=== PATIENT | female | born 1995 | race Caucasian/White ===

== ENCOUNTER 2016-09-06 15:30 | Inpatient (IN) ==
[2016-09-06] MEDS ORDERED: DINOPROSTONE VAG GEL 10 MG SYRINGE VAG ONE (15:54)
[2016-09-06] MEDS ORDERED: ONDANSETRON 4 MG/2 ML VIAL IV PRN (16:20)
[2016-09-06 16:52] LABS: Basophils % 0.2 % (0.0-0.8); Eosinophils # 0.1 10*3/uL (0.0-0.87); Eosinophils % 0.5 % (0.00-10.9); Hematocrit 24.4 VOL% (35.7-47.0); Immature Granulocytes % 0.9 %; Lymphocytes # 1.5 10*3/uL (1.4-4.0); Lymphocytes % 13.3 % (21.3-54.2); Mean Corpuscular HGB Conc 28.7 GM/DL (32-36); Mean Corpuscular Hemoglobin 20 PG (27-34); Mean Corpuscular Volume 70.3 FL (87-102); Mean Platelet Volume 10.3 FL (9.6-12.0); Monocytes # 0.9 10*3/uL (0.11-0.8); Monocytes % 8.4 % (1.7-12.7); Neutrophils # 8.4 10*3/uL (1.4-7.4); Neutrophils % 76.7 % (38.7-73.9); Platelet Count 262 T/CUMM (130-400); Red Blood Count 3.47 MC/CUMM (3.8-5.5); Red Cell Distribution Width 20.9 % (9.3-17.3)
[2016-09-06 17:24] LABS: Albumin 2.8 G/DL (3.4-5.0); Bilirubin,Total 0.4 MG/DL (0.2-1.0); Calcium 8.3 MG/DL (8.5-10.1); Osmolality,Calculated 271.7 MOS/KG (273-304); Potassium 4.2 MMOL/L (3.5-5.1); Total Protein 6.2 G/DL (6.4-8.3)
--- NOTE | 2016-09-06 18:03 | OB/GYN History & Physical ---
History of Present Illness Chief complaint: In for elective induction of labor History of present illness: Ms. Bellamy is a 21 year old female who is a 3 para 2 living 2 who presented to the labor department for elective induction of labor due to term . The risk and benefits of been thoroughly discussed with this patient and significant other, plan of care has been discussed with Dr. Garcia and all parties are in agreement with plan. The patient began her care at the [facility] and she received routine care and her course was uneventful with the exception of severe anemia. The patient was treated with iron therapy however her counts did not increase significantly. Have discussed the possibility of blood transfusion with this patient post delivery of this . She has had 2 previous vaginal deliveries and her largest weighing 7 pounds and 13 ounces and she reported no complications with either . labs: She is O+, rubella is immune, RPR is nonreactive, hepatitis B is negative, HIV is negative , and GBS cultures negative, review of systems is negative with exception of above. Home Medications Medication Instructions Recorded Confirmed Type No122/Iron/Folic Acid 1 caplet PO DAILY 10/31/14 09/06/16 History [ Multi Tablet] Allergies Allergy/AdvReac Type Severity Reaction Status Date / Time No Known Allergies Allergy Verified 10/31/14 02:36 12 point system: reviewed and no additional remarkable complaints except as stated Medical,Surgical,& Family Hx - Medical History Hematology: History of: Anemia Reproductive: No history of: Ectopic , Complication - Surgical History Surgical History: noncontributory Reproductive Surgeries: Patient denies;: Section - Family History Family History: Reports;: Family Diabetes (PGF AND MGM), Family Heart Disease ( MGM), Family Hematology (MGM Hemophilia) Denies;: Family Anesthesia Reaction, Family Cancer, Family Hypertension, Family Psychiatric Problems, Family Stroke - Social History Smoking Status: Never smoker Frequency of Alcohol Use: None Type of Drug Use: None Marital Status: Lives With:: Spouse Functional capacity: independent ambulation 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 General appearance: no acute distress - Antepartum / Post Antepartum Exam Cervix - Dilatation: 3 cm Effacement: 60% Station: -2 Rupture: Intact Presentation: Vertex Heart Rate: 140 Breast: bilateral: normal Abdomen obstetrics: Present: bowel sounds normal Vulva: bilateral: normal Vagina: Present: normal moisture Uterus exam: Present: enlarged Anus/Rectum: Present: normal perianal skin - Respiratory Respiratory exam: Present: clear to auscultation bilaterally - Cardiovascular Cardiovascular exam: Present: regular rate and rhythm - GI/Abdominal GI/Abdominal exam: Present: normal bowel sounds, soft - Extremities Exam Extremities exam: Present: normal inspection - Neurological Exam Neurological exam: Present: alert, oriented X3 - Psychiatric Psychiatric exam: Present: normal affect, normal mood - Skin Skin exam: Present: normal color, warm Assessment and Plan (1) Term Status: Acute Assessment and plan: Admit IV fluids IV Pitocin per protocol Artificial rupture membranes when appropriate Internal monitors if indicated Epidural anesthesia if desired Anticipate Current Visit: Yes Results - Labs CBC & BMP: 09/06/16 16:46 09/06/16 16:46 Quality Measures - VTE Contraindication to Pharmacological VTE Prophylaxis: High Risk of Bleeding
[2016-09-06] MEDS: LACTATED RINGERS 1,000 ML IV SCH (19:08)
[2016-09-06] MEDS ORDERED: FAMOTIDINE 20 MG/2 ML VIAL IV ONE (19:21)
[2016-09-06] MEDS ORDERED: CITRIC ACID/SODIUM CITRATE 30 ML UDCUP PO ONE (19:21)
[2016-09-06] MEDS ORDERED: ePHEDrine 50 MG/ML AMP IV PRN (19:21)
[2016-09-06] MEDS ORDERED: fentaNYL 2 MCG/ROPIV 0.2% EPID 150 ML EPIDURAL SCH (19:22)
[2016-09-06 19:47] LABS: Poikilocytosis 1+; Tear Drop Cells Few
[2016-09-06 19:48] LABS: Burr Cells Few; Hypochromasia 1+; Microcytosis 1+; Ovalocytes Few; Platelet Estimate Normal
[2016-09-06] MEDS ORDERED: OXYTOCIN/LR 20 UNIT/1,000 ML BAG IV ONE (23:49)
[2016-09-07] MEDS ORDERED: CITRIC ACID/SODIUM CITRATE 30 ML UDCUP ONE ×2 (02:23→07:51)
[2016-09-07] MEDS ORDERED: OXYTOCIN/LR 20 UNIT/1,000 ML BAG IV SCH (03:00)
[2016-09-07] MEDS ORDERED: FAMOTIDINE 20 MG/2 ML VIAL IV ONE (08:00)
[2016-09-07] MEDS: LACTATED RINGERS 1,000 ML IV SCH ×2 (08:20→08:21)
--- NOTE | 2016-09-07 08:52 | Event Note ---
832: Artificial rupture membranes was performed with clear fluid noted. The patient is comfortable with her epidural. Vaginal exam is 5 cm dilated 80% effaced and vertex was presented at a -2 station. The patient is comfortable and is kwan approximately every 2-3 minutes with moderate palpation.
[2016-09-07 11:34] LABS: Apearance,Urine CLEAR (Clear); Bacteria,Urine Occasional /HPF (Few); Bilirubin,Urine Negative (Negative); Blood, Urine Negative (Negative); Glucose,Urine (UA) Negative (Negative); Ketones,Urine Negative (Negative); Nitrite,Urine Negative (Negative); Protein,Urine Negative; RBC,Urine <1 /HPF (0-4); Urine Color Straw (Yellow); Urine Specific Gravity 1.006 (1.001-1.035); Urine Urobilinogen < 2.0 EU/DL (0.2-1.0); WBC,Urine 1 /HPF (0-6)
--- NOTE | 2016-09-07 13:25 | Event Note ---
HPI: Ms. Bellamy is a 21-year-old female who presented to the labor department for elective induction of labor due to term . THe patient's risk and benefits were thoroughly discussed with her, and plan of care was discussed with Dr. Garcia and all parties were in agreement plan. Stage I: The patient was admitted and received IV fluids and IV Pitocin per protocol. She received an epidural for pain control. She progressed in labor with a CAT 1 tracing. Artificial rupture membranes was performed with clear fluid noted. The patient continued to progress in labor with no complications. Stage II: The patient was complete and complained of pressure and desire to push. She pushed for approximately 15 minutes after which time the infant's head was delivered, the mouth and nose were suctioned on the perineum. Nuchal cord 1 was noted and reduced. The remainder of the infant was delivered at 1236, a viable male was noted. Apgars were 8 at 1 minute and 9 at 5 minutes. weight was 7 lbs and 13 oz. A cord pH was obtained and sent to the lab. The was placed on the mom's abdomen for skin to skin bonding. Stage III: Spontaneous delivery of a Pineda placenta with a three-vessel cord noted. Placenta was further examined. Grossly intact. The vagina cervix was inspected with a small first-degree perineal laceration noted which was repaired. Epidural anesthesia remain in effect on repair. Estimated blood loss was approximately 175 cc. At the time of dictation mother and baby are in stable condition.
[2016-09-07] MEDS ORDERED: ACETAMINOPHEN 325 MG TABLET PO PRN (13:27)
[2016-09-07] MEDS ORDERED: HYDROCORTISONE 2.5% RECTAL CREAM 30 GM TUBE TOP PRN (13:27)
[2016-09-07] MEDS ORDERED: DIPH/TET/ACEL PERT BOOSTER VACCINE 0.5 ML VIAL IM ONE (13:27)
[2016-09-07] MEDS ORDERED: WITCH HAZEL PADS 100/JAR TOP PRN (13:27)
[2016-09-07] MEDS ORDERED: MEASLES/MUMPS/RUBELLA VACCINE 0.5 ML VIAL SUBCUT ONE (13:27)
[2016-09-07] MEDS ORDERED: RHO(D) IMMUNE GLOBULIN 300 MCG SYRINGE IM ONE (13:27)
[2016-09-07] MEDS ORDERED: oxyCODONE/ACETAMINOPHEN 5-325 MG TABLET PO PRN (13:27)
[2016-09-07] MEDS ORDERED: LANOLIN 50% CREAM 0.3 OZ TUBE TOP PRN (13:27)
[2016-09-07] MEDS ORDERED: OXYTOCIN/LR 20 UNIT/1,000 ML BAG IV ONE (13:27)
[2016-09-07] MEDS ORDERED: BENZOCAINE 20%/MENTHOL 0.5% SPRAY 56 GM CAN TOP PRN (13:27)
[2016-09-07] MEDS ORDERED: BISACODYL 10 MG SUPP RECTAL PRN (13:27)
[2016-09-07] MEDS ORDERED: OXYTOCIN/LR 30 UNIT/1,000 ML BAG IV ONE (13:28)
[2016-09-07] MEDS ORDERED: ACETAMINOPHEN/CODEINE 300-30 MG TABLET PO PRN (13:30)
[2016-09-07] MEDS: IBUPROFEN 800 MG TABLET PO PRN (16:27)
--- NOTE | 2016-09-07 16:55 | Anesthesia Post-Op ---
Anesthesia Post OP - Post Ansesthetic Evaluation Patient seen in post op: Yes Resp: within normal limits CV: within normal limits Mental: within normal limits Temp: within normal limits [id number]: within normal limits Nausea and Vomiting: within normal limits Pain: within normal limits
[2016-09-07 20:02] LABS: Basophils % 0.1 % (0.0-0.8); Eosinophils % 0.1 % (0.00-10.9); Hematocrit 25.4 VOL% (35.7-47.0); Hemoglobin 7.8 GM/DL (12.0-16.0); Immature Granulocytes % 0.9 %; Immature Granulocytes Absolute 0.14 #; Lymphocytes # 1.1 10*3/uL (1.4-4.0); Lymphocytes % 6.9 % (21.3-54.2); Mean Corpuscular HGB Conc 30.7 GM/DL (32-36); Mean Corpuscular Hemoglobin 22 PG (27-34); Mean Corpuscular Volume 72.8 FL (87-102); Mean Platelet Volume 10.1 FL (9.6-12.0); Monocytes # 1.1 10*3/uL (0.11-0.8); Monocytes % 6.5 % (1.7-12.7); Neutrophils # 13.7 10*3/uL (1.4-7.4); Neutrophils % 85.5 % (38.7-73.9); Platelet Count 215 T/CUMM (130-400); Red Blood Count 3.49 MC/CUMM (3.8-5.5); Red Cell Distribution Width 21.7 % (9.3-17.3); White Blood Count 16.1 T/CUMM (4-12)
[2016-09-07] MEDS: FERROUS SULFATE 325 MG TABLET PO SCH (22:00)
[2016-09-07] MEDS: DOCUSATE SODIUM 100 MG CAPSULE PO SCH (22:00)
[2016-09-08] MEDS: oxyCODONE/ACETAMINOPHEN 5-325 MG TABLET PO PRN ×3 (00:10→20:02)
[2016-09-08] MEDS: IBUPROFEN 800 MG TABLET PO PRN (00:10)
[2016-09-08 05:43] LABS: Basophils % 0.3 % (0.0-0.8); Eosinophils # 0.2 10*3/uL (0.0-0.87); Eosinophils % 1.6 % (0.00-10.9); Hematocrit 23.9 VOL% (35.7-47.0); Immature Granulocytes % 1.2 %; Immature Granulocytes Absolute 0.17 #; Lymphocytes # 2.1 10*3/uL (1.4-4.0); Lymphocytes % 14.9 % (21.3-54.2); Mean Corpuscular HGB Conc 29.3 GM/DL (32-36); Mean Corpuscular Hemoglobin 22 PG (27-34); Mean Corpuscular Volume 73.3 FL (87-102); Mean Platelet Volume 10.2 FL (9.6-12.0); Monocytes # 0.9 10*3/uL (0.11-0.8); Monocytes % 6.8 % (1.7-12.7); Neutrophils # 10.4 10*3/uL (1.4-7.4); Neutrophils % 75.2 % (38.7-73.9); Platelet Count 197 T/CUMM (130-400); Red Blood Count 3.26 MC/CUMM (3.8-5.5); Red Cell Distribution Width 21.4 % (9.3-17.3); White Blood Count 13.9 T/CUMM (4-12)
[2016-09-08] MEDS ORDERED: SODIUM CHLORIDE 0.9% 250 ML IV PRN ×2 (07:23→07:47)
[2016-09-08] MEDS ORDERED: FUROSEMIDE 20 MG/2 ML VIAL IV ONE (07:46)
[2016-09-08] MEDS: DOCUSATE SODIUM 100 MG CAPSULE PO SCH ×2 (08:24→20:02)
[2016-09-08] MEDS: FERROUS SULFATE 325 MG TABLET PO SCH ×2 (08:25→20:02)
--- NOTE | 2016-09-08 10:34 | OB/GYN Progress Note ---
Assessment and Plan (1) Term Status: Acute Assessment and plan: Admit IV fluids IV Pitocin per protocol Artificial rupture membranes when appropriate Internal monitors if indicated Epidural anesthesia if desired Anticipate Current Visit: Yes (2) Anemia Status: Acute Assessment and plan: Iron therapy Type and cross and transfuse 2 units of blood Current Visit: Yes Qualifiers: Anemia type: iron deficiency Iron deficiency anemia type: unspecified iron deficiency Qualified Code(s): D50.9 - Iron deficiency anemia, unspecified (3) Vaginal delivery Status: Acute Assessment and plan: Initiate routine orders. 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 Bonding well with . Exam MICROFILM MOUNTER - Constitutional Vitals: Vital Signs Temp Pulse Pulse Resp BP BP Pulse Ox 09/08/16 10:05 97.0 F L 82 18 103/70 98 09/08/16 10:00 97.3 F L 88 18 113/69 98 09/08/16 09:55 97.0 F L 88 18 108/69 98 09/08/16 09:50 97.4 F L 84 18 108/70 97 09/08/16 09:41 97.3 F L 89 18 114/70 99 09/08/16 07:52 97.8 F 81 20 115/72 09/08/16 04:00 97.5 F L 74 18 114/71 09/08/16 02:00 18 09/08/16 00:00 97.6 F 77 20 133/70 09/07/16 20:00 97.7 F 83 20 116/76 09/07/16 19:06 98.5 F 75 18 125/75 09/07/16 18:11 98.8 F 83 18 124/79 09/07/16 18:09 98.2 F 80 18 115/70 09/07/16 17:45 98.9 F 83 18 124/79 09/07/16 17:20 98.9 F 101 H 18 122/66 09/07/16 16:45 98.9 F 101 H 18 122/66 09/07/16 16:20 99.1 F 75 18 115/75 09/07/16 16:15 98.2 F 72 18 123/70 09/07/16 16:10 98.0 F 75 18 118/71 09/07/16 16:05 99.1 F 75 18 115/75 09/07/16 15:59 99.1 F 76 18 118/75 09/07/16 15:50 99.1 F 76 18 118/75 09/07/16 15:35 98.8 F 78 18 133/77 09/07/16 15:20 98.8 F 78 18 133/77 09/07/16 14:32 97.9 F 116/63 09/07/16 14:02 97 F L 82 19 126/63 09/07/16 13:57 97.2 F L 90 20 126/63 09/07/16 13:52 70 20 107/59 09/07/16 13:46 96.9 F L 70 19 107/59 Pulse Ox 09/08/16 10:05 09/08/16 10:00 09/08/16 09:55 09/08/16 09:50 09/08/16 09:41 09/08/16 07:52 98 09/08/16 04:00 98 09/08/16 02:00 09/08/16 00:00 98 09/07/16 20:00 98 09/07/16 19:06 09/07/16 18:11 98 09/07/16 18:09 09/07/16 17:45 09/07/16 17:20 99 09/07/16 16:45 09/07/16 16:20 99 09/07/16 16:15 09/07/16 16:10 09/07/16 16:05 09/07/16 15:59 09/07/16 15:50 99 09/07/16 15:35 09/07/16 15:20 100 09/07/16 14:32 09/07/16 14:02 09/07/16 13:57 09/07/16 13:52 09/07/16 13:46 General appearance: no acute distress - Antepartum / Post Post Exam Breast: bilateral: normal Abdomen obstetrics: Present: bowel sounds normal Vulva: bilateral: normal Vagina: Present: normal moisture (Light lochia rubra) Uterus exam: Present: enlarged (Fundus firm and mid) Anus/Rectum: Present: normal perianal skin - Respiratory Respiratory exam: Present: clear to auscultation bilaterally - Cardiovascular Cardiovascular exam: Present: regular rate and rhythm - GI/Abdominal GI/Abdominal exam: Present: normal bowel sounds, soft - Extremities Exam Extremities exam: Present: normal inspection - Back Exam Back exam: Present: normal inspection - Neurological Exam Neurological exam: Present: alert, oriented X3 - Psychiatric Psychiatric exam: Present: normal affect, normal mood - Skin Skin exam: Present: normal color, warm Results - Labs CBC & BMP: 09/08/16 05:17 09/06/16 16:46
[2016-09-08 16:48] LABS: Hematocrit 30.8 VOL% (35.7-47.0)
[2016-09-08 16:49] LABS: Hemoglobin 9.3 GM/DL (12.0-16.0)
[2016-09-09] MEDS: IBUPROFEN 800 MG TABLET PO PRN (07:30)
--- NOTE | 2016-09-09 07:35 | Progress Note ---
Family Medicine PN Sub Interval history: day #1, status post vaginal , status post transfusion of packed RBCs. Patient's is without shortness of breath chest pain palpitation Uterus is nice and firm nontender Extremities well with no limits Neurologic grossly intact Status post vaginal We will continue with present therapy, and iron therapy, possible discharge in a.m. Exam (Progress Note) - Constitutional Vitals: Period Temp Pulse Resp BP Sys/James Pulse Ox Last 24 Hr 96.3 F-97.8 F 65-89 17-20 103-118/58-76 95-100 Results - Labs CBC & BMP: 09/08/16 16:37 09/06/16 16:46 Quality Measures - VTE Contraindication to Pharmacological VTE Prophylaxis: High Risk of Bleeding
[2016-09-09 07:44] VITALS: BP 114/75
[2016-09-09] MEDS ORDERED: SIMETHICONE CHEW 80 MG TABLET PO PRN (07:57)
[2016-09-09] MEDS ORDERED: MAGNESIUM HYDROXIDE SUSP 30 ML UDCUP PO PRN (07:57)
[2016-09-09] MEDS: FERROUS SULFATE 325 MG TABLET PO SCH (08:42)
[2016-09-09] MEDS: DOCUSATE SODIUM 100 MG CAPSULE PO SCH (08:42)
--- NOTE | 2016-09-09 09:53 | Discharge Summary ---
Hospital Course - Hospital Course Hospital Course: Ms. Bellamy presented to the labor department for induction of labor due to term . The patient subsequently delivered a viable with no complications. She has followed a normal course and she has done well. She did receive 2 units of packed RBCs due to anemia. She has done well post transfusion. Her vital signs and lab values are stable. She denies any headaches or shortness of breath. Her bleeding is minimal with no odor. She is voiding without difficulty. She is bonding well with her infant. She will be discharged home prescriptions for pain and a follow-up appointment in our office. Diagnosis - Discharge Diagnosis (1) Term Status: Acute (2) Anemia Status: Acute (3) Vaginal delivery Status: Acute Specialty Discharge - Follow Up or Referrals Follow up with: Parris Garcia MD [Physician] - 10/21/16 10:00 am Discharge Plan - Discharge Data Disposition: Disch To Home/Self Care Condition at Discharge: Stable Discharge Diet: advance to your usual diet, regular diet Activity: resume usual activities as tolerated Hygiene: may shower Weight Bearing at Discharge: weight bear as tolerated Driving: no restrictions Contact your physician if you experience:: fever over 101, pain uncontrolled by pain medications - Discharge Medications New Ferrous Sulfate Tab [Feosol Original Tab] 325 mg PO BID #60 tablet Acetamin/Codeine 300-30 Tab [Tylenol/Codeine #3] 2 tablet PO Q4H PRN #30 tablet PRN Reason: Pain Mild (1-3) Ibuprofen Tab [Motrin Tab] 800 mg PO Q6H PRN #30 tablet PRN Reason: Pain Moderate (4-7) No Action No122/Iron/Folic Acid [ Multi Tablet] 1 caplet PO DAILY - Follow Up or Referral Follow Up: Parris Garcia MD [Physician] - 10/21/16 10:00 am - Forms/Instructions Exam - Constitutional Vitals: Period Temp Pulse Resp BP Sys/James Pulse Ox Last 24 Hr 96.3 F-97.5 F 65-111 17-20 103-118/58-76 95-100 General appearance: no acute distress - Head Head exam: Present: normal inspection - Respiratory Respiratory exam: Present: clear to auscultation bilaterally - Cardiovascular Cardiovascular exam: Present: regular rate and rhythm - GI/Abdominal GI/Abdominal exam: Present: normal bowel sounds, soft - Extremities Exam Extremities exam: Present: normal inspection - Back Exam Back exam: Present: normal inspection - Neurological Exam Neurological exam: Present: alert, oriented X3 - Psychiatric Psychiatric exam: Present: normal affect, normal mood - Skin Skin exam: Present: normal color, warm Discharge Results Labs on day of discharge: Labs from last 24 hours 09/08/16 09/08/16 16:37 07:23 Hgb 9.3 L D Hct 30.8 L Blood Type Cancelled Antibody Screen Cancelled Crossmatch See Detail Blood Bank Comment Cancelled DS: Provider Date of admission: 09/06/16 15:30 Primary care physician: Freya Dominguez Attending physician on admission: Parris Garcia MD Consults: 09/06/16 16:20 Consult to Anesthesiology [CONS] Routine Consulting Provider: Reason for Anesthesiology: Epidural Consult Comment: Epidural for pain managment 09/07/16 13:28 Consult to French Lecturer [CONS] Routine Consult French Lecturer: Breast Feeding Discharging clinician: Shelbie Guaman CNM Expected date of discharge: 09/09/16
== END 2016-09-09 14:15 | disposition home or self-care (01) | DRG 775 ==
LOC: N.LD 15:30 → N.OB 09-07 15:11
PROVIDERS: ADMIT Obstetrics & Gynecology; ATTEND Obstetrics & Gynecology